=== PATIENT | female | born 1995 | race Two or more races ===

== ENCOUNTER 2022-06-12 20:37 | Outpatient (CLI) | payer OTHER ==
[2022-06-12] MEDS ORDERED: PRENATABS FA T1 EACH PO (22:06)
== END 2022-06-13 10:21 | disposition home or self-care (01) ==
LOC: OBS/DEL 20:37
PROVIDERS: ATTEND Specialist
DX: O26.893 Other specified pregnancy related conditions, third trimester (principal); R10.2 Pelvic and perineal pain; Z3A.29 29 weeks gestation of pregnancy

== ENCOUNTER 2022-08-11 07:34 | Inpatient (IN) | payer OTHER ==
[~2022-08-11] VITALS: Ht 149.9 cm; Wt 3.6 kg
[~2022-08-11 07:34] MED LIST: PRENATABS FA T1 EACH PO
[2022-08-17] MEDS ORDERED: IBUPROFEN800 MG PO (08:24)
== END 2022-08-17 10:38 | disposition home or self-care (01) | DRG 788 ==
LOC: O/R 08-14 05:33 → OB/GYN 08-14 05:33
PROVIDERS: ADMIT Specialist; ATTEND Specialist
PROC: 4A1HXCZ Monitoring of Products of Conception, Cardiac Rate, External Approach (ICD-10-PCS; 2022-08-14)
PROC: 10D00Z1 Extraction of Products of Conception, Low, Open Approach (ICD-10-PCS; principal; 2022-08-14 07:00)
DX: O32.1XX0 Maternal care for breech presentation, not applicable or unspecified (principal); Z3A.38 38 weeks gestation of pregnancy; Z37.0 Single live birth; Z20.822 Contact with and (suspected) exposure to COVID-19